=== PATIENT | female | born 1940 | race Caucasian/White ===

== ENCOUNTER → 2017-10-13 | Outpatient (CLI) | payer MEDICARE, BC ==
[~2017-10-13] MED LIST: ASPIR 8181 M1 PO; BENTYL 10 MG CA10 M1 PO; CALCIUM 600 +1 EAC1 PO; CRESTOR20 MG PO; DETROL LA4 MG PO; FLEXERIL PO; FOLIC ACID1 MG PO; IRON325 PO; LEVOXYL75 MCG PO; MAGOX 400400 MG PO; PERCOCET PO; PRINIVIL20 MG PO; PROTONIX40 M1 PO; QVAR REDIHALE10.6 G1 INH; SINGULAIR 10 MG10 M1 PO; UNICOMPLEX M TA1 TA1 PO; VENTOLIN HFA 1818 GM INH; VITAMIN B-12500 MCG PO; VITAMIN B-650 M1 PO; VITAMINC500 PO; XARELTO10 MG PO
== END ==
LOC: M.MRI 13:02
DX: S83.282A Other tear of lateral meniscus, current injury, left knee, initial encounter (principal); M17.12 Unilateral primary osteoarthritis, left knee; M25.462 Effusion, left knee; M71.22 Synovial cyst of popliteal space [Baker], left knee; X58.XXXA Exposure to other specified factors, initial encounter; Y93.89 Activity, other specified; Y92.89 Other specified places as the place of occurrence of the external cause; Y99.8 Other external cause status

== ENCOUNTER 2017-11-29 06:54 | Inpatient (IN) | payer MEDICARE, BC ==
[2017-11-17 08:55] LABS: HEMATOCRIT 29.1 % (37.0-47.0); HEMOGLOBIN 9.7 gm/dL (12.0-15.0); MCH 29.9 pg (26.0-34.0); MCHC 33.2 g/dL (28.0-37.0); MPV 7.3 fl. (7.2-11.1); RBC 3.23 mil/uL (4.20-5.00); RDW-CV 17.3 % (10.5-14.5); WBC 6.2 thou/uL (4.0-11.0)
[2017-11-17 09:13] LABS: PROTIME 10.1 Seconds (9.20-11.50)
[2017-11-17 09:17] LABS: ALBUMIN 3.6 g/dL (3.4-5.0); CALCIUM 9.8 mg/dL (8.5-10.1); CREATININE 1.4 mg/dL (0.6-1.3); POTASSIUM 4.1 mmol/L (3.5-5.1); TOTAL BILIRUBIN 0.5 mg/dL (<0.1-1.0); TOTAL PROTEIN 8.1 g/dL (6.4-8.2)
[2017-11-17 09:47] LABS: URINE BILIRUBIN NEGATIVE (Negative); URINE BLOOD NEGATIVE (Negative); URINE CLARITY CLEAR; URINE COLOR YELLOW; URINE GLUCOSE-RANDOM NEGATIVE (Negative); URINE KETONES NEGATIVE (Negative); URINE LEUKOCYTES-REFLEX NEGATIVE (Negative); URINE NITRITE-REFLEX NEGATIVE (Negative); URINE PROTEIN TRACE (Negative); URINE UROBILINOGEN 0.2 E.U./dl (0.2-1.0)
--- NOTE | 2017-11-17 11:43 | EKG ---
[place] [address] ELECTROCARDIOGRAM REPORT Name: ELIEYELITZA Yuri Room: PRE IN [facility]#: [id number] Admission: Attend Phys: Jatinder Harrington Discharge: Date of : 38 Report #: [id number] THIS REPORT FOR: //name// [facility] Test Date: 2017-11-17 Test Time: 09:10:02 Pat Name: YELITZA DELGADILLO Department: Room: Gender: F Elevator Builder: : 1940 Requested By: Evaristo Ray Order Number: [id number] Reading MD: Walter Dover Measurements Intervals Draper Rate: 78 P: 64 UT: 148 QRS: -21 QRSD: 131 T: 35 QT: 413 QTc: 471 Interpretive Statements Sinus rhythm Right bundle branch block Consider left ventricular hypertrophy No previous ECG available for comparison Electronically Signed On 11-17-2017 11:42:52 CDT by Walter Dover [email or web address] <ELECTRONICALLY SIGNED> By: Walter Dover MD, [facility] 11/17/17 1142 0910 0910 Walter Dover MD, FACC /EPI
[~2017-11-29] VITALS: Ht 157.5 cm; Wt 55.8 kg
[~2017-11-29 06:54] MED LIST changes: -PERCOCET PO; -XARELTO10 MG PO
[2017-11-29 07:50] VITALS: BP 144/84
[2017-11-29 15:48] VITALS: BP 137/86
[2017-11-29 20:00] VITALS: BP 119/76
--- NOTE | 2017-11-29 20:07 | NUR ---
ALERT AND ORIENTED X4. IV IS PATENT AND INFUSING. PAIN BEING MANAGED WITH PO PAIN MEDICATION. DENIES NAUSEA. POLAR CARE IS IN PLACE. JOSE ROBERTO HOSE IN PLACE ON RIGHT LEG. CAP-NO IN PLACE. VSS ON ROOM AIR. HOURLY ROUNDS HAVE BEEN MAINTAINED THROUGHOUT SHIFT. CALL LIGHT IS WITHIN REACH. NURSING WILL CONTINUE TO MONITOR.
[2017-11-30 00:12] VITALS: BP 106/66
--- NOTE | 2017-11-30 04:17 | NUR ---
PATIENT RESTING QUIETLY THIS AM ON HOURLY ROUNDS. VOIDING ADEQUATELY PER BEDPAN. PATIENT STILL FEELING NUMBNESS IN LEFT LEG POST BLOCK. DRESSING TO LEFT KNEE CLEAN, DRY AND INTACT WITH HEMOVAC IN PLACE. PAIN CONTROLLED WITH ORAL MEDICATIONS. SMALL EMESIS X1 THIS SHIFT. VITALS STABLE ON 2L O2 WITH CAPNO IN PLACE. AT BEDSIDE. WILL CONTINUE TO MONITOR.
[2017-11-30 04:27] LABS: HEMOGLOBIN 7.6 gm/dL (12.0-15.0)
[2017-11-30 04:34] VITALS: BP 104/65
--- NOTE | 2017-11-30 09:14 | NUR ---
RECIEVED O.T. ORDERS. WILL DEFER TO P.T. AND NURSING AT THIS TIME. PLEASE ORDER FURTHER O.T. SERVICES IF NEEDED.
[2017-11-30 09:39] VITALS: BP 117/56
--- NOTE | 2017-11-30 12:11 | NUR ---
PT.UP IN RECLINER. AT BEDSIDE. WILL BE ABLE TO HELP HER AT DISCHARGE. DAUGHTER (WHO IS IN A WC) AND HER LIVE WITH THEM. SHE SAID SHE IS NORMALLY INDEPENDENT AT HOME. DOES THE COOKING, CLEANING. INDEPENDENT WITH DRESSING AND BATHING. SHE CHOSE [facility] FOR HOME HEALTH. FAXED REFERRAL INFORMATION TO [facility]. CALLED IN MEÑORELNADYA WRITTEN TO PT.'S PHARMACY. P.T. SAID PATIENT WILL NEED A WALKER SHE ONLY HAS A ROLLATOR WALKER. WILL ARRANGE THROUGH [facility].
[2017-11-30 16:00] VITALS: BP 122/76
--- NOTE | 2017-11-30 16:36 | NUR ---
ASSUMED CARE OF PATIENT AFTER MORNING REPORT. ALERT AND ORIENTED X4. ASSESSMENT COMPLETED AND CHARTED. VSS ON ROOM AIR. PATIENT HAS HAD MINIMAL COMPLAINTS OF PAIN UNTIL AFTER USING HER CPM ON 0-85 THIS AFTERNOON. PAIN IS BEING MANAGED WITH ORAL PAIN MEDS. NO COMPLAINTS OF NAUSE OR SOA THIS SHIFT. PATIENTS HAS BEEN AT BEDSIDE THROUGHOUT THE SHIFT. PATIENT WORKED [place] WITH THERAPY TODAY AND IS PROGRESSING TOWRD GOALS. HOURLY ROUNDS MAINTAINED, CALL LIGHT WITHIN REACH, NURSING WILL CONTINUE TO MONITOR.
[2017-11-30 20:00] VITALS: BP 138/78
[2017-12-01] VITALS (7 sets, daily range): BP systolic 116–122; BP diastolic 59–78
[2017-12-01 04:03] LABS: HEMATOCRIT 22.7 % (37.0-47.0); HEMOGLOBIN 7.7 gm/dL (12.0-15.0)
--- NOTE | 2017-12-01 04:48 | NUR ---
PATIENT REMAINS ALERT AND ORIENTED X4. UP WITH ASSIST X1 TO BSC. MEDICATED FOR PAIN X1 WITH PARTIAL EFFECT REPORTED. DRESSING TO LEFT KNEE IS CLEAN, DRY AND INTACT WITH POLAR CARE IN PLACE. VITALS STABLE ON ROOM AIR. WILL CONTINUE TO MONITOR.
--- NOTE | 2017-12-01 09:54 | NUR ---
Received order from physician for d/c. Faxed orders to [facility]. No other needs identified.
[2017-12-01] MEDS ORDERED: PERCOCET PO (14:22)
[2017-12-01] MEDS ORDERED: XARELTO10 MG PO (14:23)
--- NOTE | 2017-12-01 19:01 | NUR ---
ASSUMED CARE OF PATIENT AFTER MORNING REPORT. ALET AND ORIENTED X4. ASSESSMENT COMPLETED AND CHARTED. VSS ON ROOM AIR. PATIENT HAD MINIMAL COMPLAINTS OF PAIN WHICH WAS MANAGED WITH PAIN MEDICATION. PATIENT WORKED WELL WITH THERAPY TODAY. PATIENT DISCHARGED AT 1730 TO HOME WITH HOME HEALTH. ALL PERSONAL BELONGINGS, PRESCRIPTIONS, AND DISCHARGE INFORMATION SENT WITH PATIENT UPON DISCHARGE.
--- NOTE | 2017-12-06 11:47 | OP ---
[facility] [address] [place] [address] OPERATIVE REPORT Name: YELITZA DELGADILLO Room: [address] IN M.R.#: [id number] Admission: 11/29/17 Attend Phys: Jatinder Harrington Discharge: 12/01/17 Date of : 38 Report #: [id number] THIS REPORT FOR: //name// CC: Ally Villa DATE OF SERVICE: 11/29/2017 PREOPERATIVE DIAGNOSIS: Left knee osteoarthritis. POSTOPERATIVE DIAGNOSIS: Left knee osteoarthritis. PROCEDURE: Left total knee arthroplasty. SURGEON: Evaristo Ray II, DO PLOW HOLDER: ANTHONY Ordoñez. ANESTHESIA: General endotracheal. ESTIMATED BLOOD LOSS: 50 mL. ANTIBIOTICS: Ancef preoperatively. DRAINS: Medium Hemovac. COMPLICATIONS: None. CONDITION: The patient is stable to recovery room. IMPLANTS: Listed in the operative record and progress note. BRIEF HISTORY: The patient was seen in the preoperative area. Preop H and P was performed. Site was marked, questions were answered. Risks and benefits were discussed with the patient in detail about surgery. The patient wished to proceed and assumed all risks. DESCRIPTION OF PROCEDURE: The patient was taken to the operative suite, placed supine on the operating table and given appropriate anesthesia. A well-padded tourniquet applied to the upper thigh and was inflated to 300 mmHg after gravity exsanguination. The operative knee was sterilely prepped and draped. Surgery began by midline incision. This was carried down to subcutaneous tissues. A medial parapatellar arthrotomy was performed and carried down to bone. The patella was then everted and excess soft tissue was removed from around the femur. The femoral cutting block was then applied, checked with a drop kathy for [address] [address] OPERATIVE REPORT Name: IZABELAGILBERTOYELITZA M Room: [address]#: [id number] Admission: 11/29/17 Attend Phys: Jatinder Harrington Discharge: 12/01/17 Date of : 38 Report #: [id number] rotational alignment, pinned in appropriate position and appropriate cuts were made. A 4-in-1 cutting block was then applied, checked for rotational alignment, pinned in appropriate position and appropriate cuts were made. Tibia was then exposed. Excess meniscus was removed. Retractors were placed on the collateral ligaments. The tibial cutting block was then applied, pinned in appropriate position, checked with a drop kathy for rotational alignment and slope and appropriate cut was made. Tibia bone was removed. The tibial base plate was then applied, checked for rotational alignment with a drop kathy and pinned in appropriate position. The femur was then applied and box cut was reamed. This was trialed with an appropriate spacer, which showed excellent fit and fill and excellent stability of the knee through all range of motion. The patella was then reamed in appropriate fashion and sized for appropriate size. Three peg holes were drilled. It was then trialed and shown to have excellent flexion and extension and excellent tracking of the patella within the groove. These trials were then removed. The tibia was punched in appropriate fashion. Bone ends were cleansed with Pulsavac irrigation and cement was mixed and applied to the final implants. These were then malleted in position and held the knee in extension and compressed to allow cement to cure. After it cured, excess was removed using a Spencer and osteotome. The wound was then copiously irrigated. The final spacer was then malleted in position. The tourniquet was deflated. Hemostasis was obtained with electrocautery. Pain cocktail was injected. PRP gel was sprayed throughout the internal aspects of the knee. Medium Hemovac drain was then applied. Capsule was closed with #2 FiberWire and 1 Vicryl in [id number] fashion. Skin was closed with 2-0 Vicryl and running 3-0 Monocryl. Dermabond and sterile dressing applied. Alok wrap and PolarCare applied. The patient was transported to the recovery room in stable condition. Counts were correct throughout the procedure. <ELECTRONICALLY SIGNED> By: Evaristo Ray II, DO 12/06/17 1147 [id number] 0905Evaristo Ray II, DO /nt
== END 2017-12-01 17:30 | disposition home health service (06) | DRG 470 ==
LOC: M.TBA 06:54 → M.ORTHSURG 06:54 → M.PRE 09:05 → M.SUR 09:30 → EDSTATUS 09:31 → M.PRE 09:33 → M.ORTHSURG 11:23
PROVIDERS: Orthopaedic Surgery; ADMIT Internal Medicine
PROC: 0SRD0J9 Replacement of Left Knee Joint with Synthetic Substitute, Cemented, Open Approach (ICD-10-PCS; principal; 2017-11-29)
DX: M17.12 Unilateral primary osteoarthritis, left knee (principal); D62 Acute posthemorrhagic anemia; J44.9 Chronic obstructive pulmonary disease, unspecified; E03.9 Hypothyroidism, unspecified; I10 Essential (primary) hypertension; Z88.1 Allergy status to other antibiotic agents; Z88.0 Allergy status to penicillin; Z88.8 Allergy status to other drugs, medicaments and biological substances; Z90.711 Acquired absence of uterus with remaining cervical stump; Z79.82 Long term (current) use of aspirin; Z79.899 Other long term (current) drug therapy